=== PATIENT | male | born 1990 | race Hispanic/Latino ===

== ENCOUNTER 2022-12-02 22:56 | Inpatient (IN) | payer BC ==
[~2022-12-02] VITALS: Ht 172.7 cm; Wt 95.3 kg
[2022-12-03] MEDS ORDERED: MORPHINE 4 MG SYG IV PRN (02:00)
[2022-12-03] MEDS ORDERED: MORPHINE 2 MG SYG IV PRN (02:00)
[2022-12-03] MEDS ORDERED: LACTATED RINGERS 1000ML 1,000 ML IV SCH (02:00)
[2022-12-03] MEDS ORDERED: LORAZEPAM 2 MG/ML 1 ML VIAL IVP ONE (02:00)
[2022-12-03] MEDS ORDERED: ONDANSETRON 4MG INJ IV PRN (02:00)
[2022-12-03] MEDS ORDERED: NICOTINE 21 MG/ 24 HR PATCH TD SCH ×2 (02:00→09:00)
[2022-12-03] MEDS ORDERED: ACETAMINOPHEN 325 MG TAB PO PRN ×2 (02:00)
[2022-12-03 02:11] LABS: BASOPHILS % (AUTO) 0.8 % (0.0-5.0); HEMATOCRIT 45.3 % (42-54); LYMPHOCYTES % (AUTO) 21.7 % (21.0-51.0); MEAN CORPUSCULAR HEMOGLOBIN 29.2 pg (27.0-33.0); MEAN CORPUSCULAR HGB CONC 33.6 g/dL (32.0-36.0); MEAN CORPUSCULAR VOLUME 86.9 fL (79-99); NEUTROPHILS % (AUTO) 66.2 % (40.0-77.0); PLATELET COUNT (AUTO) 303 K/uL (130-400); RED BLOOD CELL COUNT(AUTO) 5.21 MIL/uL (4.50-6.20); RED CELL DISTRIBUTION WIDTH 13.5 % (11.0-15.5); WHITE BLOOD COUNT (AUTO) 13.5 K/uL (4.8-10.8)
[2022-12-03 02:15] LABS: POTASSIUM 3.4 mmol/L (3.5-5.1)
[2022-12-03 02:20] LABS: ALBUMIN 3.9 g/dL (3.5-5.0); MAGNESIUM 2.2 mg/dL (1.80-2.40); PHOSPHORUS 4.1 mg/dL (2.5-4.9); TOTAL PROTEIN, SERUM 7.8 g/dL (6.0-8.3)
[2022-12-03 02:55] LABS: INR 0.93 (0.85-1.15); PROTHROMBIN TIME 9.6 SEC (9.6-11.6)
[2022-12-03 02:56] LABS: PARTIAL THROMBOPLASTIN TIME 31.8 SEC (26.3-35.5)
[2022-12-03 03:48] VITALS: BP 108/60
[2022-12-03] MEDS ORDERED: FAMOTIDINE 20MG VIAL IV SCH (09:00)
[2022-12-03] MEDS ORDERED: ENOXAPARIN SODIUM 40 MG/0.4 ML SYRINGE SQ SCH (09:00)
== END 2022-12-03 11:45 | disposition home or self-care (01) | DRG 395 ==
LOC: EDH 22:56 → EDHIP 12-03 01:43 → 3CH 12-03 03:53
PROVIDERS: ADMIT Internal Medicine; ATTEND Internal Medicine
DX: T18.5XXA Foreign body in anus and rectum, initial encounter (principal); Z20.822 Contact with and (suspected) exposure to COVID-19; F17.200 Nicotine dependence, unspecified, uncomplicated; X58.XXXA Exposure to other specified factors, initial encounter; Y93.9 Activity, unspecified; Y92.89 Other specified places as the place of occurrence of the external cause; Y99.8 Other external cause status
CPT/HCPCS: 36415; 72170; 80053; 83735; 84100; 85025; 85610; 85730; 86850; 86900; 86901; 87635; 93005; G0378; J2060; J3490; J7120